=== PATIENT | male | born 1975 | race Caucasian/White ===

== ENCOUNTER 2019-12-07 07:21 | Day surgery (SDC) | payer BC ==
[2019-11-28 17:19] VITALS: BMI 30.7
--- NOTE | 2019-12-07 07:35 | OP ---
Operative Note - Note: Operative Date: 12/07/19 Pre-Operative Diagnosis: Right medial meniscus tear Operation: Right medial and lateral partial meniscectomy Post-Operative Diagnosis: Same as Pre-op Surgeon: Andrews Brady Sign Board Erector: Rosalba Ramirez Anesthesia: General Operative Report Dictated: Yes
[2019-12-07] MEDS ORDERED: MIDAZOLAM HCL 2 MG/2 ML SINGLE DOSE VIAL ONE (07:41)
[2019-12-07] MEDS ORDERED: SUCCINYLCHOLINE CHLORIDE 200 MG/10 ML SYRINGE ONE (07:41)
[2019-12-07] MEDS ORDERED: PROPOFOL 20 ML ONE ×2 (07:41)
[2019-12-07] MEDS ORDERED: ceFAZolin SODIUM 1 GM VIAL ONE ×2 (08:03→08:14)
[2019-12-07] MEDS ORDERED: DEXAMETHASONE SOD PHOSPHATE 4 MG/1 ML VIAL ONE (08:14)
[2019-12-07] MEDS ORDERED: LIDOCAINE HCL/PF 2% SDV 5ML VIAL ONE (08:14)
[2019-12-07] MEDS ORDERED: ONDANSETRON 4 MG/2 ML VIAL ONE (08:14)
[2019-12-07] MEDS ORDERED: KETOROLAC TROMETHAMINE 30 MG/1 ML VIAL ONE (08:14)
[2019-12-07] MEDS ORDERED: BUPIVACAINE HCL/PF 0.25% (2.5MG/ML) 10 ML VIAL IJ ONE (08:32)
[2019-12-07] MEDS ORDERED: ONDANSETRON 4 MG/2 ML VIAL IVPUSH PRN (08:41)
[2019-12-07] MEDS ORDERED: oxyCODONE HCL 5 MG TABLET PO PRN (08:41)
[2019-12-07] MEDS ORDERED: PROMETHAZINE HCL 25 MG/1 ML VIAL IVPUSH PRN (08:41)
[2019-12-07] MEDS ORDERED: LACTATED RINGERS SOLUTION 1,000 ML IV SCH (08:45)
[2019-12-07 11:07] VITALS: TEMP 97.5
[2019-12-07 11:08] VITALS: BP 112/62; PULSE 72
--- NOTE | 2019-12-07 11:27 | OP ---
DATE OF OPERATION: 12/07/2019 PREOPERATIVE DIAGNOSES: Right knee medial and lateral meniscal tears, anterior cruciate ligament deficiency. POSTOPERATIVE DIAGNOSES: Right knee medial and lateral meniscal tears, anterior cruciate ligament deficiency. PROCEDURE: Right knee arthroscopy with partial medial, partial lateral meniscectomy. SURGEON: Dali Abreu MD [employer]ITY OFFICER: JONG Hays ANESTHESIA: General. POSTOPERATIVE CONDITION: Stable. COMPLICATIONS: None. INDICATIONS: This is a pleasant gentleman who was experiencing medial and lateral knee pain. MRI demonstrated medial and lateral meniscal tears. 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 Treatment options were discussed including nonoperative versus operative management, operative risks to surgery in detail including bleeding, infection, neurovascular injury, need for further surgery, postoperative pain and stiffness, progression of osteoarthritis, persistent instability. We discussed medical risks such as heart attack, stroke, DVT, PE and . I reviewed that the plan was initially to manage his meniscal tears as he was complaining mainly of pain and not instability. Should he have persistent instability, ACL reconstruction could be considered and we also reviewed the recovery that is associated with both those procedures. The patient voiced understanding and elected to proceed. PROCEDURE: Patient was brought to the operating room where a general anesthetic was administered. The patient was placed supine on the operating room table, prior to that padding all bony prominences. The right lower extremity was then prepped and draped in the usual sterile fashion. A preoperative dose of antibiotics was given and the usual timeout procedure was performed. The knee on examination showed a full range of motion. The collaterals were stable. The PCL was stable. There was a positive Myles with moderate endpoint. The knee was then marked out. The portal sites were marked out. After the timeout procedure, the lateral portal was incised using an 11 blade. The arthroscope was then passed into the patellofemoral joint. Examination of the patellofemoral joint demonstrated mild partial-thickness chondral wear along the patellar and trochlear surfaces. The arthroscope was now passed down into the notch. Here, the ACL was visualized to have fibers intact. A large portion of the lateral wall was exposed. A medial portal was now established under spinal needle localization. The medial compartment was examined. There was very slight fraying of the femoral and tibial articular surfaces with a cartilage bubble over the femoral surface. The meniscus demonstrated a complex tear involving mainly the posterior horn but extending into the body. Utilizing meniscal biters as well as a shaver, this was debrided down to a stable base. The arthroscope was now passed back into the notch. The ACL was now probed and found to have some degree of tension on it; however, less than would be expected to be normal. The arthroscope was now passed into the lateral compartment. Here, there was an undersurface tear on the posterior horn. Utilizing a meniscal shaver, this was debrided down to a stable base. The articular surfaces in the lateral compartment demonstrated no significant articular wear. The arthroscope was now passed back into the patellofemoral joint. The excess fluid was withdrawn from the joint. The portals were sutured using 3-0 nylon. Marcaine was injected at the portal sites. Sterile dressings were placed. The patient was extubated and transferred to the recovery room in stable condition. DALI ABREU M.D. [id number]
== END 2019-12-07 10:40 | disposition home or self-care (01) ==
LOC: FASU 07:21
PROVIDERS: ATTEND Orthopaedic Surgery Sports Medicine
PROC: 0SBC4ZZ Excision of Right Knee Joint, Percutaneous Endoscopic Approach (ICD-10-PCS; 2019-12-07)
PROC: 0SBC4ZZ Excision of Right Knee Joint, Percutaneous Endoscopic Approach (ICD-10-PCS; principal; 2019-12-07 08:08)
DX: M23.221 Derangement of posterior horn of medial meniscus due to old tear or injury, right knee (principal); M23.251 Derangement of posterior horn of lateral meniscus due to old tear or injury, right knee; M23.611 Other spontaneous disruption of anterior cruciate ligament of right knee
CPT/HCPCS: 94760